=== PATIENT | male | born 1940 | race Caucasian/White ===

== ENCOUNTER 2020-03-17 12:53 | Observation (INO) | payer MEDICARE ==
[2020-03-17] VITALS (7 sets, daily range): BP systolic 118–134; BP diastolic 70–84
[~2020-03-17] VITALS: Ht 175.3 cm; Wt 106.8 kg
[~2020-03-17 12:53] MED LIST: LOVA40TA2 PO; MONT10TA26 PO; tamsulosin capsule PO
[2020-03-17 13:20] LABS: CLARITY,URINE CLEAR (Clear); COLOR,URINE YELLOW (Yellow); GLUCOSE, URINE NEGATIVE (Neg); KETONES,URINE NEGATIVE (Neg); LEUKOCYTE ESTERASE ,URINE TRACE (Neg); NITRITES, URINE NEGATIVE (Neg); OCCULT BLOOD,URINE TRACE-INTACT (Neg); PH,URINE 6.5 (4.8-8.0); PROTEIN,URINE NEGATIVE (Neg); UROBILINOGEN,URINE 0.2 E.U/dL (0.2-1.0)
[2020-03-17 13:22] LABS: UA COLLECTION TYPE CLN CATCH MIDSTREAM
[2020-03-17 13:30] LABS: BACTERIA,URINE FEW /HPF (Neg); MUCUS STRANDS FEW /LPF (Neg); SQUAMOUS EPITHELIAL CELL,UR FEW /LPF (FEW)
[2020-03-17 13:49] LABS: BASOPHILS % (AUTO) 0.2 % (0-1); EOSINOPHILS % (AUTO) 0.5 % (0-6); HEMATOCRIT 42.1 % (42.0-52.0); HEMOGLOBIN 13.9 g/dl (14.0-17.9); LYMPHOCYTES # (AUTO) 1.1 X10'3 (1.1-4.8); LYMPHOCYTES % (AUTO) 15.7 % (21-51); MEAN CORPUSCULAR HEMOGLOBIN 30.2 PG (27.0-31.0); MEAN CORPUSCULAR HGB CONC 32.9 g/dL (33.0-36.5); MEAN CORPUSCULAR VOLUME 91.6 FL (78-98); MEAN PLATELET VOLUME 9.2 FL (7.4-10.4); MONOCYTES # (AUTO) 0.6 X10'3 (0-0.9); MONOCYTES % (AUTO) 9.1 % (2-12); NEUTROPHILS # (AUTO) 5.3 X10'3 (1.8-7.7); NEUTROPHILS % (AUTO) 74.5 % (42-75); PLATELET COUNT 126 X10'3 (140-440); RED CELL DISTRIBUTION WIDTH 15.7 % (11.5-14.5); WHITE BLOOD COUNT 7.1 X10'3 (4.5-11.0)
[2020-03-17 14:05] LABS: ALANINE AMINOTRANSFERASE 25 U/L (12-78); ALBUMIN 3.7 G/DL (3.4-5.0); ALBUMIN/GLOBULIN RATIO 1.1 (1.1-1.5); ALKALINE PHOSPHATASE 117 IU/L (46-116); ANION GAP 6 (8-16); ASPARTATE AMINO TRANSFERASE 15 U/L (10-37); BILIRUBIN,TOTAL 0.5 MG/DL (0.1-1.0); BLOOD UREA NITROGEN 12 MG/DL (7-18); BUN/CREATININE RATIO 10.2 (5.4-32.0); CHLORIDE 106 MMOL/L (99-107); CREATININE 1.18 MG/DL (0.60-1.10); GLUCOSE 93 MG/DL (70-104); LIPASE 58 U/L (73-393); POTASSIUM 4.2 MMOL/L (3.5-5.1); SODIUM 141 MMOL/L (135-145); TOTAL CARBON DIOXIDE 29.5 MMOL/L (24-32); TOTAL PROTEIN 7.1 G/DL (6.4-8.2); eGFR 60 ML/MIN
[2020-03-17] MEDS ORDERED: ketorolac tromethamine 15mg/ml inj. IV ONE (16:20)
[2020-03-17] MEDS ORDERED: CefTRIAXone/D5W-Rocephin 1gm 50 ML IV ONE (18:15)
--- NOTE | 2020-03-17 19:06 | NUR ---
SPOKE TO DR. PARRISH SHE ASKE FOR THE PTS URINE TO BE STRAINED AND PT TO BE NPO OF NOW
--- NOTE | 2020-03-17 19:51 | NUR ---
at bedside dr. reyez was in to talk with pt about plan of care
[2020-03-17] MEDS ORDERED: fentaNYL/PF 50MCG/1 ML 2ML syringe IV PRN ×2 (20:55)
[2020-03-17] MEDS ORDERED: labetalol 20mg/4ml (5mg/ml) syringe IV PRN (20:55)
[2020-03-17] MEDS ORDERED: morphine 4 MG/ML inj SYRINge IV PRN (20:55)
[2020-03-17] MEDS ORDERED: ringers solution, lacted 1,000 ML IV ONE (20:55)
[2020-03-17] MEDS ORDERED: ondansetron/PF 4mg/2ml inj IV PRN (20:55)
[2020-03-17] MEDS ORDERED: hydrALAZINE 20mg/ml inj. IV PRN (20:55)
[2020-03-17] MEDS ORDERED: morphine 2 MG/ML inj. syringe IV PRN (20:55)
[2020-03-17] MEDS ORDERED: ringers solution, lacted 1,000 ML IV SCH (20:55)
[2020-03-17] MEDS ORDERED: fentaNYL/PF 50MCG/1 ML 2ML syringe ONE (21:49)
[2020-03-17] MEDS ORDERED: midazolam 2 mg/2 ml injection ONE (21:49)
[2020-03-17] MEDS ORDERED: propofol inj 20 ML IV ONE (21:50)
[2020-03-17] MEDS ORDERED: LIDOcaine 2% (20mg/ml) 5ml vial ONE (21:50)
[2020-03-17] MEDS ORDERED: iohexol 300 MG/1 ML 10ml vial ONE (21:52)
[2020-03-17] MEDS ORDERED: iohexol 300 MG/1 ML 50ml polymer ONE (21:52)
--- NOTE | 2020-03-17 21:56 | NUR ---
PT TO OR WITH OR TECH FOR STENT PLACEMENT.
[2020-03-17] MEDS ORDERED: sevoflurane 250ml liquid IH ONE (22:01)
[2020-03-17] MEDS ORDERED: dexamethasone sod phosphate 4mg/ml inj. ONE (22:04)
[2020-03-17] MEDS ORDERED: ondansetron/PF 4mg/2ml inj ONE (22:04)
--- NOTE | 2020-03-17 22:50 | NUR ---
ADMITTED TO PACU FROM OR ACCOMPANIED BY ANESTHESIA. INTIAL PHYSICAL ASSESSMENT DONE AND RECORDED. REPORT RECEIVED FROM ANESTHESIA.
[2020-03-17] MEDS ORDERED: HYDROcodone/acetaminophen 5mg/325mg tablet PO PRN (23:00)
--- NOTE | 2020-03-17 23:45 | NUR ---
Received report from [facility]IMATOR [facility]ING. Patient arrived with . Alert and oriented. No c/o of pain. No respiratory issues. VSS.
--- NOTE | 2020-03-17 23:50 | NUR ---
PACU DISCHARGE CRITERIA MET, REPORT GIVEN TO FLOOR. DENIES PAIN OR DISCOMFORT, TRANSFERRED TO ROOM IN STABLE GOOD CONDITION. DISCHARGE INSTRUCTIONS WRITTEN AND GIVEN TO FLOOR COVERING PRINTER WITH PRESCRIPTIONS, TO GIVE TO PATIENT
[2020-03-18 00:15] VITALS: BP 149/87
[2020-03-18] MEDS ORDERED: ondansetron/PF 4mg/2ml inj IV PRN (00:55)
[2020-03-18] MEDS ORDERED: mag hydrox/Alum hydrox/simeth 30ml oral suspension PO PRN (00:55)
[2020-03-18] MEDS ORDERED: HYDROcodone/acetaminophen 5mg/325mg tablet PO PRN (00:55)
[2020-03-18] MEDS ORDERED: magnesium hydroxide 30ml (MOM) UD suspension PO PRN (00:55)
[2020-03-18] MEDS ORDERED: acetaminophen 325mg tablet PO PRN (00:55)
--- NOTE | 2020-03-18 03:00 | NUR ---
Patient tolerated food and voided without issues. Written discharge instructions and prescription by Dr. Mcgrath given to patient. Family will make follow up appointment. Provided discharge teachings and written materials to patient and . Patient stable upon discharge, denies any pain or discomfort. Addendum: 03/18/20 at 0318 by Isabella Briggs RN Staff assisted patient via wheelchair to private vehicle.
[2020-03-18] MEDS ORDERED: cephalexin 250mg capsule PO SCH (08:00)
[2020-03-18] MEDS ORDERED: atorvastatin 10mg tablet PO SCH (08:00)
[2020-03-18] MEDS ORDERED: montelukast 10mg tablet PO SCH (08:00)
[2020-03-18] MEDS ORDERED: tamsulosin 0.4mg capsule PO SCH (21:00)
== END 2020-03-18 03:00 | disposition home or self-care (01) ==
LOC: ER 12:54 → SUR 3N 03-18 01:21
PROVIDERS: ADMIT Internal Medicine; ATTEND Internal Medicine
DX: N20.2 Calculus of kidney with calculus of ureter (principal); E78.5 Hyperlipidemia, unspecified; N40.1 Benign prostatic hyperplasia with lower urinary tract symptoms; N32.81 Overactive bladder; Z79.899 Other long term (current) drug therapy
CPT/HCPCS: 36415; 52332; 74176; 80053; 81001; 83690; 85025; 87081; 87088; 93005; 96361; 96365; 96375; 99285; C1758; C1769; C2617; G0378; J0696; J1100; J1885; J2001; J2250; J2405; J2704; J3010; J7120; Q9967; 88300; A4618; A7000